=== PATIENT | female | born 1990 | race Caucasian/White ===

== ENCOUNTER 2017-06-25 02:32 | Emergency (ER) | payer OTHER, MEDICAID ==
[2017-06-25 02:39] VITALS: BP 129/66
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
[2017-06-25] MEDS ORDERED: IBUPROFEN 800 MG TABLET PO ONE (03:50)
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
== END 2017-06-25 04:02 | disposition home or self-care (01) ==
LOC: ER 02:32
DX: S09.90XA Unspecified injury of head, initial encounter (principal); R51 Headache; M54.2 Cervicalgia; V43.52XA Car driver injured in collision with other type car in traffic accident, initial encounter; R60.0 Localized edema; Z88.2 Allergy status to sulfonamides
CPT/HCPCS: 70450; 72125; 99283